=== PATIENT | male | born 1960 | race Caucasian/White ===

== ENCOUNTER 2016-10-23 16:14 | Inpatient (IN) | payer MEDICARE ==
--- NOTE | ~2016-10-23 | HP ---
Unit #: [id number] #: [id number] Patient: JOSE DUMAS [id number] [address] [address] [id number] E MR#: [id number] NAME: JOSE DUMAS ROOM: Age: 56 Sex: M Admission Date: 10/23/2016 : 1960 Attending Physician: Jessica Leyva M.D. Primary Care Physician: Vicente Bateman HISTORY AND PHYSICAL REVISED REPORT CHIEF COMPLAINT Contusions, rhabdomyolysis, acute kidney injury and confusion. HISTORY This 56-year-old male with hypertension and psychiatric disorder, is admitted for confusion. I was able to go into our [facility] system and patient had [facility] in the past under a different medical record number. His medical record number previously was [id number]. It appears that he has a history of schizoaffective disorder, bipolar type, along with history of hypertension. He really cannot tell me what occurred today except the he was stumbling and falling. I am told by the ER physician that he lives in an apartment building and EMS was called. Patient was found in the lobby of his apartment with multiple contusions and abrasions, confused. Unfortunately no history was taken by the ambulance while the apartment rental agent was present. He was brought to this emergency department where he remains confused. Labs are consistent with acute kidney injury and rhabdomyolysis. On examination he has multiple contusions and abrasions. He is also a bit agitated on exam, is tremulous but denies any history of alcohol abuse. Multiple CT scans are essentially negative. He is unsure of the names of his home medicines or where he obtains these home medicines. He tells me that he takes some medication for depression and for hypertension. PAST MEDICAL HISTORY 1. Schizoaffective disorder, bipolar type, admitted to [facility] in the past. 2. Hypertension. 3. Hyperlipidemia. 4. Abdominal surgery of some type. ALLERGIES No known drug allergies. HOME MEDICATIONS Unknown. FAMILY HISTORY Unknown. SOCIAL HISTORY The patient states that he lives alone, that he does not smoke or use Unit #: [id number] #: [id number] Patient: JOSE DUMAS. He denies illicit drug use. REVIEW OF SYSTEMS Impossible to obtain as patient is a bit agitated and quite confused. PHYSICAL EXAMINATION GENERAL: A 56-year-old male who is a bit agitated, confused and does have an intention tremor on exam. VITAL SIGNS: Temperature 99.1. Pulse 100. Respirations 24. Blood pressure 139/97. O2 saturation is 97% on room air. HEENT: Eyes PERRLA, extraocular muscles are intact. Cataract extraction noted left eye. Pharynx poor dentition. Right cheekbone is somewhat prominent. Patient states he had previous surgery over his right cheek. Patient has abrasions and contusions over his face and laceration over the top of his nose with some bruising. NECK: His neck is supple, without adenopathy or thyromegaly. CHEST: Chest is clear. CARDIAC: Normal S1 and S2, without S3, S4 or murmur. ABDOMEN: Bowel sounds are present. No hepatosplenomegaly, tenderness or masses. Well-healed scar noted below the umbilicus. EXTREMITIES: Without cyanosis, clubbing or edema. Pedal pulses are present. Multiple abrasions and contusions over the extremities. NEUROLOGIC EXAM: Patient is awake, alert. He is oriented to year and the fact that he is in the hospital. His speech is fairly fluent but he seems to have word salad at times. Cranial nerves are intact. He does have an essential tremor on exam, has equal strength throughout. DIAGNOSTIC STUDIES LABORATORY: Admission labs: Hematocrit is 47.8, white blood count is 13.8, negative troponin, CPK is 9400. SMA-12: BUN 29, creatinine 2.1 up from a BUN of 10, creatinine of 1.2 01/2007 at [facility], AST 139, alkaline phosphatase 107. Acetaminophen, salicylate and alcohol levels are negligible. Lactic acid is normal. Ammonia is 22. Urine tox screen positive for TCA. Urinalysis 3+ blood without significant white or red cells. IMAGING: Multiple CT scans were performed. Head CT no acute disease. CT of the facial bones shows nondisplaced nasal fractures. Chest x-ray no acute disease. CT scan of the abdomen and pelvis large stool burden, DJD of the spine. CT of the c-spine no fracture. CARDIOVASCULAR: EKG normal sinus rhythm, rate 99. ASSESSMENT 1. Falls and contusion. 2. Rhabdomyolysis with acute kidney injury. 3. Schizoaffective disorder, bipolar type. Patient is confused and agitated. 4. Hypertension. 5. Nasal fractures which are nondisplaced. 6. History of hyperlipidemia per old records. Unit #: [id number] #: [id number] Patient: JOSE DUMAS PLANS 1. IV fluids, repeat labs and CPK in the morning. 2. Will give IM Haldol along with p.r.n. Ativan and Cogentin. 3. Check lithium level as patient may be on lithium given his tremulousness. 4. Need home medication list. 5. Old records from [facility]. 6. Obtain VDRL, HIV, thyroid function test, B12 level along with repeat labs in the morning. 7. Psychiatry to see. Dictated by Edel Patterson M.D. AML/cf TD: 10/23/2016 21:26 JOB #: [id number] HISTORY AND PHYSICAL Page 1 of 1 X Edel Patterson MD X HISTORY AND PHYSICAL
--- NOTE | ~2016-10-23 | DS ---
Unit #: [id number] #: [id number] Patient: JOSE DUMAS [id number] [address] [place], [place] [address] [id number] I MR#: [id number] NAME: JOSE DUMAS ROOM: 328 Age: 56 Sex: M Admission Date: 10/23/2016 : 1960 Discharge Date: 10/28/2016 Attending Physician: Erick Vang M.D. Primary Care Physician: Vicente Bateman DISCHARGE SUMMARY ADMITTING DIAGNOSES 1. Confusion. 2. Acute kidney injury. 3. Rhabdomyolysis. 4. Confusion. DISCHARGE DIAGNOSES 1. Confusion. 2. Acute kidney injury. 3. Rhabdomyolysis. 4. Confusion. NEEDLE LOOM OPERATOR Dr. Bradford HISTORY OF ADMITTING ILLNESS The patient is a 56-year-old man with a past medical history of psychiatric disorder including bipolar disorder, hypertension, who was admitted on the because of confusion. He mentioned that he tripped down and fell at home and developed some lacerations on the face and extremities and for that he was admitted. HOSPITAL COURSE In the hospital course, slowly his agitation has resolved. He was seen by Dr. Bradford. He was started on Cogentin. He had a CT of the head and abdomen. No fractures were noted. No acute changes were noted. He is doing clinically better. He wants to go home. He was also noted to have rhabdomyolysis, started on IV fluids. His renal function improved. He was doing clinically better. His creatinine on admission was 2.1 and it is down to 0.9. He had a CK level high up to 9405 and it trended down with fluids. He is doing clinically better. He is more alert and oriented x3. I spoke at him at length and requested him to follow with Dr. Bradford as an outpatient. I will arrange for home healthcare and then I am requesting nurses to obtain an appointment with Dr. Bradford prior to the discharge. On the day of the discharge, his physical examination: VITAL SIGNS - temperature 97.9, pulse rate 80, respiratory rate 18, blood pressure 145/91. The patient is alert and oriented x3, lying in the bed, in no acute distress. HEENT - normocephalic, atraumatic. No icterus. PERRLA. Extraocular movements intact. NECK is supple. No JVD. HEART - S1, S2. Unit #: [id number] #: [id number] Patient: JOSE DUMAS Regular rate and rhythm. CHEST - bilateral equal air entry, clear to auscultation. ABDOMEN - soft, nontender. EXTREMITIES - no edema. Normal peripheral pulses. DISCHARGE MEDICATIONS Include: 1. Cogentin 1 mg p.o. twice a day. 2. Clindamycin 600 mg p.o. three times a day for five days. 3. Norvasc 5 mg p.o. daily. 4. Haldol 5 mg p.o. twice a day. All the discharge instructions were explained in detail to the patient. Discussed with case management specialist trying to make sure his prescriptions are covered. Total time spent in his care - 32 minutes. Dictated by... Randy Espinosa TD: 10/30/2016 07:50 JOB #: [id number] DISCHARGE SUMMARY X X DISCHARGE SUMMARY
--- NOTE | ~2016-10-23 | CT4 ---
[facility] A Service of [facility] RADIOLOGY TEXT RESULTS PATIENT: JOSE DUMAS LOCATION: A 328-01 : 56 UNIT #: [id number] AGE: [address]: Erick Vang MD SEX: M ORDER DR: [id number] [facility] [address] [place], [place] [address] [id number] I MR#: [id number] Acc #: [id number] NAME: JOSE DUMAS : 1960 SEX: M STUDY DATE/TIME: 10/23/2016 17:12 UNIT: CEDOF ROOM: 96684 STUDY DESCRIPTION: CT Abd and Pelv Wo Cont Attending Physician: Edel Patterson M.D. Ordering Physician: Jessica Leyva M.D. Primary Care Physician: Victor M Hennessy, [facility] MEDICAL IMAGING REPORT This report is preliminary unless electronic signature is present EXAM CT abdomen and pelvis without contrast 10/23/2016 HISTORY 56-year-old male who fell today. Bilateral abdominal bruising anteriorly. Patient is poor historian with acute mental status changes. Abrasion above the eyes and bloody nose. COMPARISON None. TECHNIQUE 5 mm axial images from the lung bases through the lesser trochanters without intravenous enteric contrast. Sagittal and coronal reformed images were obtained. This CT exam was performed with one or more of the following radiation dose reduction techniques: automatic exposure control, adjustment of mA and/or kV according to patient size, and iterative reconstruction. FINDINGS ABDOMEN: The lung bases are free of consolidation. No basilar pneumothorax. 4 mm nonspecific low-density lesion in the inferior right hepatic lobe, benign etiology favored such as a cyst or hemangioma. Gallbladder, spleen, pancreas, adrenals, kidneys within normal limits. Large stool burden in the cecum and proximal ascending colon. Appendix not visualized but no pericecal inflammation is seen. Moderate calcific atherosclerosis of the infrarenal abdominal aorta. PELVIS: No acute findings in the pelvis. Urinary bladder, prostate and rectum normal. No pelvic free fluid. [facility] A Service [facility] RADIOLOGY TEXT RESULTS PATIENT: JOSE DUMAS LOCATION: [facility] 328-01 : 56 UNIT #: [id number] AGE: [address]: Erick Vang MD SEX: M ORDER DR: Moderate loss of disc height at L5-S1. No acute osseous abnormalities are identified. IMPRESSION 1. No acute findings in the abdomen and pelvis. 2. Yyypybip-tf-fhcev stool burden in the cecum and ascending colon. 3. Degenerative disc changes at L5-S1. Dictated by... Alba Julio M.D. THIS IS AN ELECTRONICALLY VERIFIED REPORT Alba Julio M.D. at 10/24/2016 2:42 PM ZACARIAS/valente TD: 10/23/2016 23:14 JOB #: [id number] MEDICAL IMAGING REPORT COPY
--- NOTE | ~2016-10-23 | CR72 ---
[facility] A Service of [facility] & [facility] RADIOLOGY TEXT RESULTS PATIENT: JOSE DUMAS [facility] [address] : [birth year] UNIT #: [id number] AGE: [address]: Erick Vang MD SEX: M ORDER DR: [id number] [facility] [address] [place], [place] [address] [id number] E MR#: [id number] Acc #: [id number] NAME: JOSE DUMAS : 1960 SEX: M STUDY DATE/TIME: 10/23/2016 15:36 UNIT: [facility] ROOM: STUDY DESCRIPTION: CR Chest Single View Portable Attending Physician: Jessica Leyva M.D. Ordering Physician: Jessica Leyva M.D. Primary Care Physician: Vicente Bateman MEDICAL IMAGING REPORT This report is preliminary unless electronic signature is present EXAM Portable chest. DATE OF EXAM 10/23/2016 INDICATION Altered mental status. Unknown injury to face. ER patient. FINDINGS Portable view of the chest obtained. The heart size and vascularity are normal. Lungs are clear. The bones are normal. IMPRESSION No active disease. Dictated by... Roland Fox M.D. THIS IS AN ELECTRONICALLY VERIFIED REPORT Roland Fox M.D. at 10/24/2016 10:07 AM BENJY/kishor TD: 10/23/2016 19:08 JOB #: [id number] MEDICAL IMAGING REPORT COPY
--- NOTE | ~2016-10-23 | CT71 ---
[facility] A Service of [facility] & [facility] RADIOLOGY TEXT RESULTS PATIENT: JOSE DUMAS LOCATION: C3A 328-01 : 56 UNIT #: [id number] AGE: [address]: Erick Vang MD SEX: M ORDER DR: [id number] [facility] [address] [place], [place] [address] [id number] I MR#: [id number] Acc #: [id number] NAME: JOSE DUMAS : 1960 SEX: M STUDY DATE/TIME: 10/23/2016 17:07 UNIT: CEDOF ROOM: 60891 STUDY DESCRIPTION: CT Head Wo Contrast Attending Physician: Edel Patterson M.D. Ordering Physician: Jessica Leyva M.D. Primary Care Physician: Victor M Hennessy, Vicente MEDICAL IMAGING REPORT This report is preliminary unless electronic signature is present EXAM CT head 10/23/2016 HISTORY Patient too confused for history. Talked to ER Dr. Leyva where visible consent fell, altered mental status, unknown about injury to face, ocular bloody nose, abrasion above left eye and right eye. TECHNIQUE CT head performed skull base through vertex without intravenous contrast. No prior CTs of head for comparison. Some images degraded by streak/motion artifact. This CT exam was performed with one or more of the following radiation dose reduction techniques: automatic exposure control, adjustment of mA and/or kV according to patient size, and iterative reconstruction. FINDINGS The brainstem is unremarkable. The cerebellum and cerebral hemispheres show overall preservation pappas matter-white matter differentiation. No hemorrhage. No evidence of acute cortical ischemia. The midline structures are nondisplaced. Basal ganglia intact. Ventricles, cisterns and sulci within normal limits of size and contour. No intra- or extraaxial mass effect or abnormal intracranial fluid collection. Intraorbital soft tissues remarkable. I see no soft tissue defect, subcutaneous air or radiodense foreign body. Paranasal sinuses and mastoid air cells clear and visualized extent. No fracture. IMPRESSION 1. Some images degraded by streak/motion artifact. The brain appears normal. If patient has ongoing neurologic symptoms, consider follow-up imaging, preferably with MRI if patient is candidate. [facility] A Service of [facility] & [facility] RADIOLOGY TEXT RESULTS PATIENT: JOSE DUMAS LOCATION: C3A 328-01 : 56 UNIT #: [id number] AGE: [address]: Erick Vang MD SEX: M ORDER DR: 2. No fracture. 3. No definite extracranial acute soft tissue abnormalities seen. Please correlate with clinical exam. Dictated by... Christiano Clement M.D. THIS IS AN ELECTRONICALLY VERIFIED REPORT Christiano Clement M.D. at 10/24/2016 12:31 PM TREE/valente TD: 10/23/2016 22:24 JOB #: [id number] MEDICAL IMAGING REPORT COPY
--- NOTE | ~2016-10-23 | EE ---
Unit #: [id number] #: [id number] Patient: JOSE DUMAS [id number] [address] [address] [id number] I MR#: [id number] NAME: JOSE DUMAS : 1960 SEX: M STUDY DATE/TIME: 10/24/2016 UNIT: C3A PCU ROOM: [address] [place] [address] DESCRIPTION: Attending Physician: Erick Vang M.D. Referring Physician: Edel Patterson M.D. Primary Care Physician: Vicente Bateman NEURODIAGNOSTICS REPORT EXAM EEG. REASON FOR THE STUDY Confusion, rhabdomyolysis. EEG DESCRIPTION This is an inpatient, portable, digitally recorded, multimontage adult EEG with leads placed according to the International 10/20 System. Hyperventilation was not done but photic stimulation was attempted. With the patient fully aroused, there is 8.5 Hz posterior dominant alpha rhythm which is symmetric and attenuates with eyes opening. The patient did become drowsy and later on stage 2 sleep was seen. No clear cut interictal discharges or clinical events were seen. Hyperventilation was not done. Photic stimulation was attempted in an intermittent stepwise pattern up to the flash frequency of 30 Hz but I did not see any driving, asymmetry, or paroxysmal activity. No clinical events were seen. IMPRESSION This is essentially normal adult awake and asleep EEG. An EEG like this does not rule out epilepsy. Clinical correlation is recommended. Dictated by... Randy Fry/jeevan TD: 10/24/2016 16:41 JOB #: [id number] Unit #: [id number] #: [id number] Patient: JOSE DUMAS NEURODIAGNOSTICS REPORT X Elver Tapia MD NEURODIAGNOSTICS REPORT
--- NOTE | ~2016-10-23 | CT101 ---
[facility] A Service of [place] [facility] RADIOLOGY TEXT RESULTS PATIENT: JOSE DUMAS LOCATION: C3A 328-01 : 56 UNIT #: [id number] AGE: [address]: Erick Vang MD SEX: M ORDER DR: [id number] [facility] [address] [place], [place] [address] [id number] I MR#: [id number] Acc #: [id number] NAME: JOSE DUMAS : 1960 SEX: M STUDY DATE/TIME: 10/23/2016 15:29 UNIT: CEDOF ROOM: 37471 STUDY DESCRIPTION: CT Maxillofacial Area Wo Cont Attending Physician: Edel Patterson M.D. Ordering Physician: Jessica Leyva M.D. Primary Care Physician: Vicente Bateman MEDICAL IMAGING REPORT This report is preliminary unless electronic signature is present EXAM Maxillofacial CT. DATE OF EXAM 10/23/2016 HISTORY Patient too confused for history. Talked to ER Dr. Leyva for visible consent. Fell, AMS. Unknown about injury to face. Bloody nose, abrasion above left eye and right ear, ocular. TECHNIQUE CT facial bones performed. Bone and soft tissue windows reviewed. Coronal reconstructions performed. Please see today's dedicated CT head for discussion of intracranial findings. NOTE: This CT exam was performed with one or more of the following radiation dose reduction techniques: automatic exposure control, adjustment of mA and/or kV according to patient size, and iterative reconstruction. FINDINGS Extracranial soft tissues show no definite periorbital soft tissue defect, subcutaneous air or radiodense foreign body. There appears to be some mild soft tissue swelling nasal bridge/proximal nasal region, but without soft tissue defect, subcutaneous air or radiodense foreign body. The premaxillary soft tissues unremarkable. Perimandibular soft tissues unremarkable. The visualized paranasal sinuses and mastoid air cells are clear. Streak artifact from dental hardware. The visualized nasopharyngeal, oropharyngeal, pharyngeal mucosal spaces unremarkable. No adenopathy. The submandibular and visualized parotid glands unremarkable. Carotid arterial calcifications. Visualized bones of calvaria intact. Transverse fracture of the uppermost nasal bones. Mildly comminuted. No significant distraction or STS. [facility] A Service of [facility] RADIOLOGY TEXT RESULTS PATIENT: JOSE DUMAS LOCATION: C3A 328-01 : 56 UNIT #: [id number] AGE: [address]: Erick Vang MD SEX: M ORDER DR: displacement. The dominant anterior fracture fragment measures about 3-6 mm in diameter. The dominant left nasal bone fracture fragment measures about 5 mm in length. There is no significant distraction displacement or angulation. The nasal septum is in the midline. The ostiomeatal complexes are patent. The orbital bony structures are intact. The zygomas and zygomatic arches and pterygoid plates are intact. Maxillary sinus weller intact. Lucency in the right lateral aspect of the right first incisor suggests a focus of dental caries. Correlate with dental examination. The mandible is intact. IMPRESSION 1. There is a mildly comminuted fracture at the uppermost bilateral nasal bones with a predominately transverse fracture plane. The fracture fragments show no significant distraction, displacement or angulation. The dominant anterior fragment measures about 3-6 mm in maximum diameter and the dominant left lateral fragment measures about 5 mm in maximum diameter. Overlying mild soft tissue swelling without obvious soft defect, subcutaneous air or radiodense foreign body. 2. No other facial bone fractures are seen. 3. Focal area of lucency in the right lateral aspect of the right upper first incisor concerning for dental caries. Correlate with dental examination. Multiple dental implants and hardware causing extensive streak artifact. 4. Please see today's dedicated CT of head for discussion of intracranial findings. Please see remainder of incidental details in body of report above. Dictated by... Christiano Clement M.D. THIS IS AN ELECTRONICALLY VERIFIED REPORT Christiano Clement M.D. at 10/24/2016 12:31 PM Jessie TD: 10/23/2016 22:42 JOB #: [id number] MEDICAL IMAGING REPORT COPY
--- NOTE | ~2016-10-23 | CR58 ---
[facility] A Service of [facility] RADIOLOGY TEXT RESULTS PATIENT: JOSE DUMAS LOCATION: C3A PC 328-01 : 56 UNIT #: [id number] AGE: [address]: Erick Vang MD SEX: M ORDER DR: [id number] [facility] [address] [place], [place] [address] [id number] I MR#: [id number] Acc #: [id number] NAME: JOSE DUMAS : 1960 SEX: M STUDY DATE/TIME: 10/23/2016 16:35 UNIT: CEDOF ROOM: 85404 STUDY DESCRIPTION: CR Cervical Spine 2 or 3 Views Attending Physician: Edel Patterson M.D. Ordering Physician: Jessica Leyva M.D. Primary Care Physician: Victor M Hennessy, Vicente MEDICAL IMAGING REPORT This report is preliminary unless electronic signature is present EXAM 4 views cervical spine 10/23/2016 at 16:35 HISTORY 56-year-old male acute mental status changes today. Trauma to the face, possible fall. Patient is very confused and unable to give additional history. Bloody face. COMPARISON STUDIES None. FINDINGS AP, odontoid, lateral and swimmer's views were obtained. No acute cervical spine fracture or subluxation is seen. Anterior and posterior osteophyte formation is present at C6-C7. Craniocervical junction appears intact. Imaged lung apices appear clear. IMPRESSION 1. No acute cervical spine findings. Anterior and posterior osteophyte formation at C6-C7. Dictated by... Alba Julio M.D. THIS IS AN ELECTRONICALLY VERIFIED REPORT Alba Julio M.D. at 10/24/2016 2:42 PM LLH/pcl TD: 10/23/2016 21:51 JOB #: [id number] [facility] A Service of [facility] RADIOLOGY TEXT RESULTS PATIENT: JOSE DUMAS LOCATION: C3A PC 328-01 : 56 UNIT #: [id number] AGE: [address]: Erick Vang MD SEX: M ORDER DR: MEDICAL IMAGING REPORT COPY
--- NOTE | ~2016-10-23 | CO ---
Unit #: [id number] #: [id number] Patient: ROLO DUMAS [id number] [facility] [address] [facility]. [place], [place] [address] [id number] I MR#: [id number] NAME: ROLO DUMAS ROOM: 328 Age: 56 Sex: M Admission Date: 10/23/2016 : 1960 Attending Physician: Erick Vang M.D. Primary Care Physician: Vicente Bateman Consultation Date: 10/27/2016 CONSULTATION REPORT REASON FOR CONSULTATION Followup. DISCUSSION Mr. Rolo Dumas is a 56-year-old white male, seen on 10/27/2016 in room 328, bed 1, at [facility]. The patient was pleasant and cooperative during interview, lying down comfortably in bed. The patient's vital signs; 97.8, 58, 17, 144/93. The patient was able to answer questions appropriately. The patient does not remember about getting treatment from [facility]. The patient reports that his confusion is better. The patient has a history of schizoaffective disorder. Denied any side effects from medication. Currently, on haloperidol 5 mg b.i.d., Cogentin 1 mg b.i.d. REVIEW OF SYSTEMS Complete review of systems unremarkable. MENTAL STATUS EXAMINATION General appearance, the patient dressed casually in hospital attire, lying comfortably. The patient denied any complaints. The patient's hemoglobin is 12.0, WBC 6.4. CMP unremarkable except CK still high 1140. The patient's attention span and concentration, fair. Speech, regular rate. Oriented in time, place, and person. Mood and affect were perplexed, flat. Thought process, coherent. Thought content, the patient denied any thoughts of harming self or others, but guarded. Recent and remote memory, poor. Language, able to name object and repeat phrases. Fund of knowledge, fair to slightly impaired. Insight and judgment, fair to slightly impaired. DIAGNOSIS Psychiatric: Schizoaffective disorder, bipolar type, F25.9. ASSESSMENT/PLAN 1. Supportive psychotherapy and psychoeducation provided to the patient. 2. Educated about benefits and side effects of medication and course and prognosis of illness. 3. Advised to continue with current medication. If needed, consider further adjustment of medication. Please feel free to call if any questions, telephone #[phone]. Dictated by... Yonathan Bradford M.D. Unit #: [id number] #: [id number] Patient: ROLO DUMAS ANTONIO/modl TD: 10/28/2016 13:09 JOB #: [id number] CONSULTATION REPORT X Yonathan Bradford MD X CONSULTATION REPORT
--- NOTE | ~2016-10-23 | HP ---
Unit #: [id number] #: [id number] Patient: JOSE DUMAS [id number] [address] [place], [place] [address] [id number] I MR#: [id number] NAME: JOSE DUMAS ROOM: 20938 Age: 56 Sex: M Admission Date: 10/23/2016 : 1960 Attending Physician: Edel Patterson M.D. Primary Care Physician: Victor M Hennessy, Vicente HISTORY AND PHYSICAL ADDENDUM Will obtain an MRI of the brain and EEG on this patient. We found a list of contact numbers and the nurse spoke with the patient's nephew. The patient is usually very functional. He obtains his medications through [facility] and will call [facility] in the morning. At this time, the patient actually is improving neurologically, but still has some word salad, tremulous, etc. His lithium level was negligible. Dictated by Edel Patterson M.D. AML/ts TD: 10/24/2016 05:41 JOB #: [id number] HISTORY AND PHYSICAL X Edel Patterson MD HISTORY AND PHYSICAL
--- NOTE | ~2016-10-23 | EKG ---
PATIENT: JOSE DUMAS UNIT #: [id number] Ventricular Rate: 99 BPM Atrial Rate: 99 BPM P-R Interval: 188 ms QRS Duration: 110 ms Q-T Interval: 348 ms QTC Calculation(Bezet): 446 ms P Thornfield: 44 degrees Calculated R Thornfield: -13 degrees Calculated T Thornfield: 44 degrees Diagnosis Line: Normal sinus rhythm Diagnosis Line: Normal ECG Diagnosis Line: When compared with ECG of 30-AUG-2015 12:14, Diagnosis Line: Questionable change in QRS duration Diagnosis Line: Confirmed by GEMMA MORTON MD ([id number]) on 10/24/2016 Diagnosis Line: 6:22:36 PM INTERPRETING MD: PRAVEEN BARRAGAN
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
[2016-10-23 15:52] LABS: POC - CKMB 66.5 ng/mL (0.0-7.9); POC - TROPONIN <0.05 ng/mL (<=0.05)
[2016-10-23 17:56] LABS: POC - CKMB 47.1 ng/mL (0.0-7.9); POC - TROPONIN 0.05 ng/mL (<=0.05)
[2016-10-23 17:59] LABS: BASOPHIL# 0.1 X10e3 (0-0.3); BASOPHIL% 0.4 % (0-2.5); DIFF IND NO; HEMATOCRIT 47.8 % (38.0-50.0); HEMOGLOBIN 16.1 gm/dL (13.0-16.0); LYMPHOCYTE# 1.2 X10e3 (1.0-3.5); MEAN CELL VOLUME 91.7 FL (83-96); MEAN CORPUSCULAR HGB CONC 33.8 g/dL (30-36); MONOCYTE# 1.3 X10e3 (0-1.0); MONOCYTE% 9.4 % (3.0-12.0); NEUTROPHIL# 11.2 X10e3 (1.5-7.1); NEUTROPHIL% 81.2 % (40-75); PLATELET COUNT 232 X10e3 (140-420); RED BLOOD COUNT 5.21 X10e (3.90-5.60); RED CELL DISTRIBUTION WIDTH 13.5 % (11.0-15.5); WHITE BLOOD COUNT 13.8 X10e3 (4.0-10.5)
[2016-10-23 18:13] LABS: INR 1.1; PROTHROMBIN TIME (PATIENT) 11.3 SECONDS (9.6-11.5)
[2016-10-23 18:14] LABS: URINE SOURCE CLEAN CATCH
[2016-10-23 18:23] LABS: URINE APPEARANCE CLOUDY; URINE BILIRUBIN NEG (NEG); URINE BLOOD 3+ (NEG); URINE COLOR YELLOW; URINE GLUCOSE NEG (NEG); URINE KETONE NEG (NEG); URINE LEUKOCYTE ESTERASE TRACE (NEG); URINE NITRATE NEG (NEG); URINE PH 5.5 (5-8); URINE PROTEIN 2+ (NEG); URINE SPECIFIC GRAVITY 1.019 (1.003-1.035); URINE UROBILINOGEN 0.2 MG/DL (NEG)
[2016-10-23 18:28] LABS: CULTURE INDICATED? NO; URBCS1 AUWI 0-2 /[HPF] (0-2); URINE BACTERIA AUWI NEG (NEGATIVE); URINE SQUAMOUS EPITHELIAL CELL NONE SEEN /[HPF]; UWBCS1 AUWI 0-2 (0-5)
[2016-10-23 18:33] LABS: ALBUMIN SERUM 4.3 g/dL (3.5-5.0); ALKALINE PHOSPHATASE 107 U/L (32-92); ALT (SGPT) 31 U/L (10-40); AST (SGOT) 139 U/L (10-42); BILIRUBIN, DIRECT 0.1 mg/dL (0.0-0.2); BILIRUBIN,TOTAL 1.1 mg/dL (0.2-2.0); BLOOD UREA NITROGEN 29 mg/dL (9-23); CALCIUM SERUM 9.8 mg/dL (8.4-10.2); CARBON DIOXIDE 23 mmol/L (22-31); CHLORIDE 107 mmol/L (100-111); CREATININE SERUM 2.1 mg/dL (0.6-1.4); GLOM FILT RATE Estimated 34.6 mL/min (>60); GLUCOSE FASTING 100 mg/dL (70-110); POTASSIUM 4.2 mmol/L (3.5-5.1); PROTEIN TOTAL SERUM 8.3 g/dL (6.0-8.3); SALICYLATE <4.0 mg/dL; SODIUM 139 mmol/L (135-145)
[2016-10-23 18:34] LABS: ALCOHOL BLOOD <5 mg/dL (0)
[2016-10-23 18:54] LABS: CPK (CREATINE PHOSPHOKINASE) 9405 IU/L (36-174)
[2016-10-23 18:57] LABS: AMPHETAMINE NEG (NEG); BARBITURATES NEG (NEG); BENZODIAZEPINES NEG (NEG); COCAINE NEG (NEG); MARIJUANA NEG (NEG); OPIATES NEG (NEG); TRICYCLIC ANTIDEPRESSANTS POS (NEG); U METHADONE NEG (NEG)
[2016-10-23 18:59] LABS: ACETAMINOPHEN <10 ug/mL
[2016-10-24 06:14] LABS: BASOPHIL% 0.5 % (0-2.5); EOSINOPHIL% 0.3 % (0.0-7.0); HEMATOCRIT 44.1 % (38.0-50.0); HEMOGLOBIN 14.7 gm/dL (13.0-16.0); LYMPHOCYTE# 1.6 X10e3 (1.0-3.5); LYMPHOCYTE% 15.8 % (17.0-45.0); MEAN CELL VOLUME 92.7 FL (83-96); MEAN CORPUSCULAR HEMOGLOBIN 30.8 PG (28-34); MEAN CORPUSCULAR HGB CONC 33.2 g/dL (30-36); MONOCYTE# 0.8 X10e3 (0-1.0); MONOCYTE% 8.2 % (3.0-12.0); NEUTROPHIL# 7.6 X10e3 (1.5-7.1); NEUTROPHIL% 75.2 % (40-75); PLATELET COUNT 176 X10e3 (140-420); RED BLOOD COUNT 4.76 X10e (3.90-5.60); RED CELL DISTRIBUTION WIDTH 13.4 % (11.0-15.5); WHITE BLOOD COUNT 10.1 X10e3 (4.0-10.5)
[2016-10-24 06:31] LABS: DIFF IND NO
[2016-10-24 06:48] LABS: ALBUMIN SERUM 3.4 g/dL (3.5-5.0); BUN/CREATININE RATIO 16.87; CALCIUM SERUM 8.4 mg/dL (8.4-10.2); CREATININE SERUM 1.6 mg/dL (0.6-1.4); GLOM FILT RATE Estimated 47.4 mL/min (>60); POTASSIUM 3.5 mmol/L (3.5-5.1); PROTEIN TOTAL SERUM 6.6 g/dL (6.0-8.3)
[2016-10-24 09:34] LABS: POC - CREATININE 2.43 mg/dL (0.64-1.27)
[2016-10-24] MEDS ORDERED: ABILIFY10 MG PO (11:59)
[2016-10-24] MEDS ORDERED: XANAX1 MG PO (12:01)
[2016-10-24] MEDS ORDERED: ABILIFY5 MG PO (12:02)
[2016-10-24] MEDS ORDERED: DESIPRAMINE HCL50 MG PO (12:04)
[2016-10-24] MEDS ORDERED: THORAZINE100 MG PO (12:04)
[2016-10-24] MEDS ORDERED: FELODIPINE ER5 MG PO (12:05)
[2016-10-25 06:11] LABS: BASOPHIL% 0.6 % (0-2.5); EOSINOPHIL# 0.1 X10e3 (0-0.7); EOSINOPHIL% 1.1 % (0.0-7.0); HEMATOCRIT 37.3 % (38.0-50.0); LYMPHOCYTE# 1.6 X10e3 (1.0-3.5); LYMPHOCYTE% 19.5 % (17.0-45.0); MEAN CELL VOLUME 93.4 FL (83-96); MEAN CORPUSCULAR HEMOGLOBIN 31.5 PG (28-34); MEAN CORPUSCULAR HGB CONC 33.7 g/dL (30-36); MEAN PLATELET VOLUME 9.1 FL (6.5-11.5); MONOCYTE# 0.7 X10e3 (0-1.0); MONOCYTE% 9.3 % (3.0-12.0); NEUTROPHIL# 5.5 X10e3 (1.5-7.1); NEUTROPHIL% 69.5 % (40-75); PLATELET COUNT 159 X10e3 (140-420); RED BLOOD COUNT 3.99 X10e (3.90-5.60); RED CELL DISTRIBUTION WIDTH 13.4 % (11.0-15.5); WHITE BLOOD COUNT 7.9 X10e3 (4.0-10.5)
[2016-10-25 06:14] LABS: DIFF IND NO; HEMOGLOBIN 12.6 gm/dL (13.0-16.0)
[2016-10-25 06:51] LABS: ALBUMIN SERUM 2.7 g/dL (3.5-5.0); ALKALINE PHOSPHATASE 76 U/L (32-92); ALT (SGPT) 23 U/L (10-40); AST (SGOT) 66 U/L (10-42); BILIRUBIN,TOTAL 0.8 mg/dL (0.2-2.0); BLOOD UREA NITROGEN 16 mg/dL (9-23); CALCIUM SERUM 7.9 mg/dL (8.4-10.2); CARBON DIOXIDE 21 mmol/L (22-31); CHLORIDE 110 mmol/L (100-111); CK TOTAL 2378 IU/L (36-174); GLOM FILT RATE Estimated ABOVE60 mL/min (>60); GLUCOSE FASTING 105 mg/dL (70-110); POTASSIUM 3.7 mmol/L (3.5-5.1); PROTEIN TOTAL SERUM 5.5 g/dL (6.0-8.3); SODIUM 137 mmol/L (135-145)
[2016-10-25 07:09] LABS: %MB 0.1 % (0.0-4.0); MB 3.3 ng/ml
[2016-10-25 13:46] LABS: AMPHETAMINE NEG (NEG); BARBITURATES NEG (NEG); BENZODIAZEPINES NEG (NEG); COCAINE NEG (NEG); MARIJUANA NEG (NEG); OPIATES NEG (NEG); TRICYCLIC ANTIDEPRESSANTS POS (NEG); U METHADONE NEG (NEG)
[2016-10-26 09:10] LABS: HEMATOCRIT 38.3 % (38.0-50.0); HEMOGLOBIN 12.9 gm/dL (13.0-16.0); MEAN CELL VOLUME 93.7 FL (83-96); MEAN CORPUSCULAR HEMOGLOBIN 31.6 PG (28-34); MEAN CORPUSCULAR HGB CONC 33.7 g/dL (30-36); MEAN PLATELET VOLUME 9.2 FL (6.5-11.5); RED BLOOD COUNT 4.09 X10e (3.90-5.60); WHITE BLOOD COUNT 7.5 X10e3 (4.0-10.5)
[2016-10-26 09:45] LABS: BLOOD UREA NITROGEN 11 mg/dL (9-23); BUN/CREATININE RATIO 12.22; CALCIUM SERUM 8.9 mg/dL (8.4-10.2); CARBON DIOXIDE 22 mmol/L (22-31); CHLORIDE 109 mmol/L (100-111); CPK (CREATINE PHOSPHOKINASE) 2185 IU/L (36-174); CREATININE SERUM 0.9 mg/dL (0.6-1.4); GLOM FILT RATE Estimated ABOVE60 mL/min (>60); GLUCOSE FASTING 91 mg/dL (70-110); MAGNESIUM 1.9 mg/dL (1.6-3.0); SODIUM 139 mmol/L (135-145)
[2016-10-27 05:53] LABS: HEMATOCRIT 35.3 % (38.0-50.0); MEAN CELL VOLUME 92.6 FL (83-96); MEAN CORPUSCULAR HEMOGLOBIN 31.4 PG (28-34); MEAN CORPUSCULAR HGB CONC 33.9 g/dL (30-36); RED BLOOD COUNT 3.82 X10e (3.90-5.60); RED CELL DISTRIBUTION WIDTH 13.1 % (11.0-15.5); WHITE BLOOD COUNT 6.4 X10e3 (4.0-10.5)
[2016-10-27 06:59] LABS: BLOOD UREA NITROGEN 14 mg/dL (9-23); BUN/CREATININE RATIO 15.55; CALCIUM SERUM 8.8 mg/dL (8.4-10.2); CARBON DIOXIDE 27 mmol/L (22-31); CHLORIDE 106 mmol/L (100-111); CPK (CREATINE PHOSPHOKINASE) 1140 IU/L (36-174); CREATININE SERUM 0.9 mg/dL (0.6-1.4); GLOM FILT RATE Estimated ABOVE60 mL/min (>60); GLUCOSE FASTING 88 mg/dL (70-110); MAGNESIUM 1.8 mg/dL (1.6-3.0); POTASSIUM 4.1 mmol/L (3.5-5.1); SODIUM 141 mmol/L (135-145)
[2016-10-28 09:09] LABS: BASOPHIL% 0.6 % (0-2.5); EOSINOPHIL# 0.1 X10e3 (0-0.7); EOSINOPHIL% 1.1 % (0.0-7.0); HEMATOCRIT 40.3 % (38.0-50.0); HEMOGLOBIN 13.6 gm/dL (13.0-16.0); LYMPHOCYTE% 17.4 % (17.0-45.0); MEAN CELL VOLUME 92.6 FL (83-96); MEAN CORPUSCULAR HEMOGLOBIN 31.4 PG (28-34); MEAN CORPUSCULAR HGB CONC 33.9 g/dL (30-36); MEAN PLATELET VOLUME 9.4 FL (6.5-11.5); MONOCYTE# 0.4 X10e3 (0-1.0); MONOCYTE% 7.8 % (3.0-12.0); NEUTROPHIL# 4.1 X10e3 (1.5-7.1); NEUTROPHIL% 73.1 % (40-75); PLATELET COUNT 207 X10e3 (140-420); RED BLOOD COUNT 4.35 X10e (3.90-5.60); RED CELL DISTRIBUTION WIDTH 12.6 % (11.0-15.5); WHITE BLOOD COUNT 5.6 X10e3 (4.0-10.5)
[2016-10-28 09:30] LABS: DIFF IND NO
[2016-10-28 09:45] LABS: BLOOD UREA NITROGEN 12 mg/dL (9-23); BUN/CREATININE RATIO 13.33; CALCIUM SERUM 8.8 mg/dL (8.4-10.2); CARBON DIOXIDE 26 mmol/L (22-31); CHLORIDE 107 mmol/L (100-111); CREATININE SERUM 0.9 mg/dL (0.6-1.4); GLOM FILT RATE Estimated ABOVE60 mL/min (>60); GLUCOSE FASTING 92 mg/dL (70-110); POTASSIUM 3.7 mmol/L (3.5-5.1); SODIUM 135 mmol/L (135-145)
[2016-10-28] MEDS ORDERED: ABILIFY10 MG PO (13:38)
[2016-10-28] MEDS ORDERED: BACTROBAN15 GM TOP (13:40)
[2016-10-28] MEDS ORDERED: COGENTIN1 M1 PO (13:40)
[2016-10-28] MEDS ORDERED: HALDOL PO (13:40)
[2016-10-28] MEDS ORDERED: NORVASC PO (13:41)
[2016-10-28] MEDS ORDERED: CLEOCIN PO (13:42)
== END 2016-10-28 14:27 | disposition home health service (06) | DRG 558 ==
LOC: CED 16:14 → CEDOF 21:40 → C3A PCU 10-24 11:18
PROVIDERS: Emergency Medicine; Family Medicine; Internal Medicine; Nurse Practitioner; Psychiatry & Neurology Psychiatry
DX: M62.82 Rhabdomyolysis (principal); N17.9 Acute kidney failure, unspecified; F05 Delirium due to known physiological condition; F25.0 Schizoaffective disorder, bipolar type; I10 Essential (primary) hypertension; E78.5 Hyperlipidemia, unspecified; S02.2XXA Fracture of nasal bones, initial encounter for closed fracture; D64.9 Anemia, unspecified; W01.0XXA Fall on same level from slipping, tripping and stumbling without subsequent striking against object, initial encounter
CPT/HCPCS: 36415; 51701; 70450; 70486; 71010; 72040; 74176; 80048; 80053; 80076; 80178; 80307; 81003; 82140; 82550; 82553; 82565; 82607; 82947; 83605; 83735; 84439; 84443; 84484; 85025; 85027; 85610; 86592; 87806; 93005; 95816; 97116; 97161; 97165; 97530; 99285; G0480; G8978-GP; G8979-GP; G8987-GO; G8988-GO; J1630

== ENCOUNTER 2016-11-18 19:05 | Emergency (ER) | payer MEDICARE ==
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
[~2016-11-18 19:05] MED LIST: ABILIFY10 MG PO; ABILIFY5 MG PO; BACTROBAN15 GM TOP; CLEOCIN PO; COGENTIN1 M1 PO; DESIPRAMINE HCL50 MG PO; FELODIPINE ER5 MG PO; HALDOL PO; NORVASC PO; THORAZINE100 MG PO; XANAX1 MG PO
== END 2016-11-18 20:04 | disposition home or self-care (01) ==
LOC: CED 19:05
DX: S02.40EA Zygomatic fracture, right side, initial encounter for closed fracture (principal); S01.511A Laceration without foreign body of lip, initial encounter; I10 Essential (primary) hypertension; F31.9 Bipolar disorder, unspecified; F25.9 Schizoaffective disorder, unspecified; Y04.0XXA Assault by unarmed brawl or fight, initial encounter; Y92.410 Unspecified street and highway as the place of occurrence of the external cause
CPT/HCPCS: 12013; 70450; 70486; 73560; 99284